=== PATIENT | female | born 1960 | race Caucasian/White ===

== ENCOUNTER → 2019-03-31 12:21 | Outpatient (CLI) | payer BC, SELFPAY ==
[2019-03-31 13:32] LABS: EXAGEN MAILED SPECIMEN
[2019-03-31 14:26] LABS: Color, Urine Straw (Yellow); Glucose, Dipstick Normal (Normal); Ketone-Dipstick Negative (Negative); Leukocyte Esterase-Dipstick Negative /ul (Negative); Nitrite-Dipstick Negative (Negative); Occult Blood-Urine Negative /ul (Negative); Protein-Dipstick Negative (Negative); Urine Bilirubin Dipstick Negative (Negative); Urine Clarity Clear (Clear); Urine Urobilinogen Normal (Normal); Urine pH 6.5 (5.0 - 8.0)
[2019-03-31 14:37] LABS: Protein, Urine (Random) 7.7 mg/dL (<11.9); Protein:Creat Ratio 223 mg/g CRE (0-200)
== END ==
PROVIDERS: PCP Family Medicine; Referring Provider Internal Medicine Rheumatology; Visit Provider Internal Medicine Rheumatology
DX: M06.00 Rheumatoid arthritis without rheumatoid factor, unspecified site (principal); Z79.899 Other long term (current) drug therapy; M79.7 Fibromyalgia; Z79.52 Long term (current) use of systemic steroids; M81.0 Age-related osteoporosis without current pathological fracture; R76.8 Other specified abnormal immunological findings in serum
CPT/HCPCS: 81002; 82570; 84156